=== PATIENT | male | born 1980 | race Caucasian/White ===

== ENCOUNTER 2024-01-28 22:05 | Emergency (ER) | payer SELFPAY ==
[~2024-01-28] VITALS: Ht 177.8 cm; Wt 120.0 kg
[2024-01-28 22:11] VITALS: TEMP 98.1; O2SAT 100
[2024-01-28 23:36] LABS: BASOPHILS % 0.5 % (0.0-2.0); EOSINOPHILS % 1.3 % (0.0-5.0); HEMATOCRIT. 42.1 % (42.0-52.0); HEMOGLOBIN. 14.3 g/dL (14.0-18.0); MEAN CORPUSCULAR HEMOGLOBIN 28.6 pg (28.0-32.0); MEAN CORPUSCULAR HGB CONC 33.9 g/dL (31.0-37.0); MEAN CORPUSCULAR VOLUME 84.4 fL (80.0-94.0); MEAN PLATELET VOLUME 8.7 fl (7.4-10.4); MONOCYTES % 6.8 % (2.0-8.0); NEUTROPHILS % 74.4 % (40.0-76.0); PLATELET 232 x1000/uL (130-400); RED BLOOD CELL COUNT 4.99 mill/uL (4.7-6.1); RED CELL DISTRIBUTION WIDTH 14.1 % (11.6-14.6); WHITE BLOOD COUNT 9.2 x1000/uL (4.5-11.0)
[2024-01-28 23:42] LABS: CHLORIDE 109 mEq/L (98-107); POTASSIUM 3.1 mEq/L (3.5-5.1); SODIUM 141 mEq/L (136-145)
[2024-01-28 23:43] LABS: CALCIUM 8.8 mg/dL (8.7-10.4); CARBON DIOXIDE 25 mEq/L (21-32)
[2024-01-28 23:48] LABS: GLUCOSE 103 mg/dL (70-105); UREA NITROGEN BLOOD 13 mg/dL (9-23)
[2024-01-28 23:49] LABS: TROPONIN I HIGH SENSITIVITY 15 ng/L (3.0-53)
[2024-01-29] MEDS: POTASSIUM CHLORIDE 20MEQ/PACKET PO NR (03:09)
[2024-01-29 03:15] VITALS: BP 137/83; PULSE 77; RESP 14
== END 2024-01-29 03:18 | disposition home or self-care (01) ==
LOC: ER 22:05
DX: R00.2 Palpitations (principal); E87.6 Hypokalemia
CPT/HCPCS: 36415; 71045; 80048; 84484; 85025; 99284